=== PATIENT | female | born 1990 | race Native Hawaiian/Other Pacific Islander ===

== ENCOUNTER → 2022-05-23 09:46 | Outpatient (CLI) | payer OTHER, SELFPAY ==
[2022-05-23 12:28] LABS: HCG Quantitative /Beta subunit 74442 mIU/mL
== END ==
PROVIDERS: PCP Student in an Organized Health Care Education/Training Program; Referring Provider Obstetrics & Gynecology; Visit Provider Obstetrics & Gynecology
DX: Z34.81 Encounter for supervision of other normal pregnancy, first trimester (principal); N96 Recurrent pregnancy loss
CPT/HCPCS: 36415; 84702

== ENCOUNTER → 2022-05-25 09:10 | Outpatient (CLI) | payer OTHER, SELFPAY ==
[2022-05-25 11:14] LABS: HCG Quantitative /Beta subunit 84741 mIU/mL
== END ==
PROVIDERS: PCP Student in an Organized Health Care Education/Training Program; Referring Provider Obstetrics & Gynecology; Visit Provider Obstetrics & Gynecology
DX: Z34.81 Encounter for supervision of other normal pregnancy, first trimester (principal); N96 Recurrent pregnancy loss
CPT/HCPCS: 36415; 84702

== ENCOUNTER → 2022-06-30 14:03 | Outpatient (CLI) | payer OTHER, SELFPAY ==
[2022-06-30 22:01] LABS: Urine N gonorrhoeae NOT DETECTED
[2022-06-30 22:10] LABS: Urine Chlamydia NOT DETECTED
== END ==
PROVIDERS: PCP Student in an Organized Health Care Education/Training Program; Visit Provider Obstetrics & Gynecology
DX: Z34.81 Encounter for supervision of other normal pregnancy, first trimester (principal); Z3A.12 12 weeks gestation of pregnancy
CPT/HCPCS: 87491; 87591

== ENCOUNTER → 2022-06-30 14:36 | Outpatient (CLI) | payer OTHER, SELFPAY ==
[2022-06-30 15:02] LABS: Add Manual Diff / Slide Review NO; Basophils Absolute Auto 100 /uL (0-100); Basophils Percent Auto 0.8 % (0-2); Eosinophils Absolute Auto 200 /uL (0-450); Eosinophils Percent Auto 2.2 % (2-4); Hematocrit 40.3 % (36-46); Hemoglobin 13.8 g/dL (12.0-16.0); Lymphocytes Absolute Auto 1400 /uL (1100-4500); Mean Corpuscular HGB Conc 34.1 % (30-36); Mean Corpuscular Hemoglobin 29.3 PG (26-34); Monocytes Absolute Auto 500 /uL (0-900); Monocytes Percent Auto 5.8 % (3-14); Neutrophils Absolute Auto 7200 /uL (1500-7000); Neutrophils Percent Auto 76.2 % (50-75); Platelet Count 288 X10^3/uL (150-400); Red Blood Cell Count 4.69 X10^6/uL (4.0-5.2); Red Cell Distribution Width 13.5 % (11.6-14.8); White Blood Cell Count 9.5 X10^3/uL (4.5-11.0)
[2022-06-30 16:36] LABS: Hepatitis B Surface Antigen NEGATIVE s/c (NEGATIVE); Rubella Antibody IgG 25.8 IU/mL (>15)
[2022-06-30 16:57] LABS: HIV 1 & 2 Ab/Ag 4th Gen Combo NEGATIVE (NEGATIVE); Hep C Virus Ab w/Reflex Quant NEGATIVE s/c (NEGATIVE)
[2022-07-01 06:05] LABS: RPR Screen Non Reactive (Non Reactive)
[2022-07-01 09:16] LABS: Varicella IgG Antibody 611 index (Immune >165)
== END ==
PROVIDERS: PCP Student in an Organized Health Care Education/Training Program; Referring Provider Obstetrics & Gynecology; Visit Provider Obstetrics & Gynecology
DX: Z34.81 Encounter for supervision of other normal pregnancy, first trimester (principal); Z3A.12 12 weeks gestation of pregnancy
CPT/HCPCS: 36415; 80055; 86787; 86803; 86850; 86900; 86901; 87389; 87491; 87591

== ENCOUNTER → 2022-08-02 09:53 | Outpatient (CLI) | payer OTHER, SELFPAY ==
[2022-08-02 13:39] LABS: Appearance Urine UA CLEAR; Bilirubin Urine UA NEGATIVE (NEGATIVE); Color Urine UA YELLOW; Glucose Urine UA NEGATIVE (Negative); Ketones Urine UA NEGATIVE (NEGATIVE); Leukocyte Esterase Urine UA 1+ (NEGATIVE); Nitrite Urine UA NEGATIVE (Negative); Occult Blood Urine UA NEGATIVE (Negative); Protein Urine UA NEGATIVE (Negative); Specific Gravity Urine UA <=1.005 (1.000-1.035); Urobilinogen Urine UA 0.2 E.U./dL (0.2)
[2022-08-02 13:43] LABS: Bacteria Urine None Seen; RBC Urine None Seen (0-5/HPF); Squamous Epithelial Cell Urine 0-1 /HPF (0-5/HPF); WBC Urine 1-5/HPF (0-5/HPF)
== END ==
PROVIDERS: PCP Student in an Organized Health Care Education/Training Program; Visit Provider Obstetrics & Gynecology
DX: Z34.81 Encounter for supervision of other normal pregnancy, first trimester (principal)
CPT/HCPCS: 81003; 81015; 87086

== ENCOUNTER → 2022-08-09 15:11 | Outpatient (CLI) | payer OTHER, SELFPAY ==
--- NOTE | 2022-08-09 15:11 | DI.US.S_ITS ---
PROCEDURE: US OB >= 14 WEEKS FETUS INDICATIONS: ANATOMY OUTSIDE/PRIOR DATING DATA: Last menstrual period (LMP): 04/02/2022 LMP-based estimated date of delivery (RIGO): 01/07/2023. First dating scan (date and location): 06/02/2022. Estimated date of delivery (RIGO) from first dating scan: 01/08/2023. The calculations are made using the clinical RIGO of 01/07/2023. TECHNIQUE: Real-time scanning was performed of the fetus, with image documentation and biometric measurements. COMPARISON: [facility], , OB <= 14 WEEKS FETUS, 06/02/2022, 17:12. FINDINGS: General: A single living intrauterine gestation is present. Presentation: Variable. Placenta: Placental position is anterior , without previa. Amniotic fluid index: 15.7 cm, normal range is 5-24 cm. Single deepest vertical pocket is 5.5 cm. heart rate: 150 beats per minute. Maternal cervical canal: 4.4 cm long. Normal lower limit is 2.5 cm. biometrics: Biparietal diameter: 19 weeks Head circumference: 18 weeks 2 days Abdominal circumference: 18 weeks 5 days Femur length: 17 weeks 5 days Clinically estimated gestational age: 18 weeks 3 days Composite gestational age from present scan: 18 weeks 3 days Estimated weight and percentile: 233 g; 37th percentile Anatomic survey: Neuro: Ventricles are non-dilated at less than 10 mm. Cisterna magna is normal at 3-11 mm. Cerebellum is normal in size and morphology. Nuchal skin fold: Normal at less than 6 mm between 14-21 weeks gestational age. Face: Nose and lips, facial profile are normal. Spine: No evidence for spina bifida. Heart: 4-chambered heart is present, with normal ventricular outflow tracts. Solitary left ventricular intracardiac focus. Diaphragm: Diaphragm is intact. Stomach: Left-sided stomach is present. Kidneys: No hydronephrosis. Normal is less than 5 mm in 2nd trimester, less than 7 mm in 3rd trimester. Cord: 3-vessel cord has orthotopic insertion. Bladder: Normal in size. Extremities: All 4 extremities identified. IMPRESSION: 1. Single living IUP redemonstrated and interval growth is normal. 2. Echogenic intracardiac focus: 1.4-1.8 fold likelihood of Down syndrome. If isolated finding, consider aneuploidy screening with cell-free DNA. If aneuploidy screen is negative, no further evaluation needed. Anatomic survey otherwise normal. We strive to produce accurate, complete, and clear reports of imaging services. To assist us in improving patient care, this report was composed using standard report templates and voice recognition software. Therefore, it may contain abnormal punctuation, insertions and/or omissions. Occasional wrong-word or sound-alike substitutions may occur. Though we review the report and make efforts to correct it, we do recommend that the report be read carefully in proper context to recognize any text inaccuracies. Dictated by: Sampson OROZCO Interpreted: Mario Hernandez MD on 08/09/2022 at 16:43 Transcribed by: REESE on 08/11/2022 at 16:16 Approved by: Malinda Moyer M.D. on 08/11/2022 at 21:16
== END ==
PROVIDERS: PCP Student in an Organized Health Care Education/Training Program; Referring Provider Obstetrics & Gynecology; Visit Provider Obstetrics & Gynecology
DX: Z34.82 Encounter for supervision of other normal pregnancy, second trimester (principal); Z3A.18 18 weeks gestation of pregnancy
CPT/HCPCS: 76811

== ENCOUNTER → 2022-08-19 10:05 | Outpatient (CLI) | payer OTHER, SELFPAY | PROVIDERS: PCP Student in an Organized Health Care Education/Training Program; Referring Provider Obstetrics & Gynecology; Visit Provider Obstetrics & Gynecology | DX: Z34.82 Encounter for supervision of other normal pregnancy, second trimester (principal) | CPT/HCPCS: 36415 ==

== ENCOUNTER → 2022-10-04 09:37 | Outpatient (CLI) | payer OTHER, SELFPAY ==
[2022-10-04 11:40] LABS: Hematocrit 36.5 % (36-46); Hemoglobin 12.6 g/dL (12.0-16.0)
[2022-10-04 11:54] LABS: GTT (PREG) 1 Hour PP 50gm Dose 135 mg/dL (76-139)
== END ==
PROVIDERS: PCP Student in an Organized Health Care Education/Training Program; Referring Provider Obstetrics & Gynecology; Visit Provider Obstetrics & Gynecology
DX: Z34.82 Encounter for supervision of other normal pregnancy, second trimester (principal); Z3A.26 26 weeks gestation of pregnancy
CPT/HCPCS: 36415; 82950; 85014; 85018

== ENCOUNTER → 2022-12-13 15:31 | Outpatient (CLI) | payer OTHER, SELFPAY ==
[2022-12-14 17:19] LABS: Strep Grp B PCR NEG for Grp B Strep
== END ==
PROVIDERS: PCP Student in an Organized Health Care Education/Training Program; Visit Provider Obstetrics & Gynecology
DX: Z34.83 Encounter for supervision of other normal pregnancy, third trimester (principal); Z3A.36 36 weeks gestation of pregnancy
CPT/HCPCS: 87653

== ENCOUNTER 2022-12-17 02:54 | Observation (INO) | payer OTHER, SELFPAY ==
--- NOTE | 2022-12-17 12:51 | PM.OBTRLD ---
Visit Information Visit Information Date of evaluation: 12/17/22 On-call OB Provider: Tad Cool Reason for Evaluation: Yes rule out labor and Yes other Comments/Additional reasons for admission: Bleeding at 37 weeks' gestation [facility] Medical History (Updated 12/17/22 @ 12:57 by Tad Cool MD) Anxiety (~2006) Chicken pox (~1995) Depression (~2006) Foot pain (~2011) Heavy menstrual period (~11/2020) History of precipitous delivery Infertility (~11/2018) Irregular menstrual cycle (~2004) Migraines (~2004) Painful menstrual periods (~11/2020) Raynaud's disease Seasonal allergies Surgical History (Updated 06/07/22 @ 20:27 by Shilpa Tidwell) Anesthesia [place] teeth extracted (~12/2016) Family History (Updated 06/07/22 @ 20:31 by Shilpa Tidwell) Father Diabetes mellitus Hypertension Periodontal disease Hyperlipidemia Mother Hypertension Pre-diabetes Hyperlipidemia Grandmother Lung cancer Cancer Family/Other Colon cancer Family/Other Breast cancer Grandmother Myocardial infarction Hypertension Diabetes mellitus History of heart disease Family/Other Diabetes mellitus Hypertension Grandfather Colon cancer Hypertension Periodontal disease Social History marital status: number of children: 1 household members: spouse and children lives independently: Yes [facility] ([facility]) pets and animals: No education level: college (femi's degree) occupational status: unemployed current occupational exposures/hazards: No special georgi needs: No travel history: recent (domestic only) seatbelt use: always helmet use: Yes water heater temp set < 120 deg: Yes working smoke detector in home: Yes fire extinguisher in home: Yes carbon monox detector in home: Yes firearms in home: Yes do you feel safe at home: Yes Smoking Status: Former smoker (Quit age 25) Tobacco: How many years used: 7 (at worst 1.5 pack/day) second hand exposure: Yes (neighbors smoke heavily) alcohol intake: former (occasionally, not while ) substance use type: does not use during the past year weight has: remained stable well-balanced diet: daily or most days daily servings fruits/ve-4 caffeine: Yes (1 cup coffee/day, Aware of 200mg limit) Type(s) of exercise: walking, bicycling (stationary bike) and weight lifting frequency: daily Exam Const General: cooperative Orientation: oriented x3 HENMT Head: normal to inspection Other: When patient arrived, she had a pad with nickel size amount of old blood on her pad. She was having occasional contractions she was walked for an hour the contractions ceased she then had a larger area of blood on her pad approximately 4 cm x 1 cm. Pad was changed she was then observed for another 2 hours and there was no significant bleeding no bright red blood Evaluation Evaluation Baseline heart rate: 150 Variability: Average (6-10) monitor accelerations: Present Monitor Decelerations: Absent Comments: Cervical check was not done due to her bleeding and lack of contractions or any signs of labor Diagnosis, Plan/Disposition Final Diagnosis (1) False labor after 37 weeks of gestation without delivery: Status: Acute Plan/Disposition Plan: Patient being discharged and told to return when she has 10 contractions and a half an hour or signs of ruptured membranes, or bright red blood as opposed dark blood OB Disposition: home
== END 2022-12-17 07:25 | disposition home or self-care (01) ==
LOC: LABOR 02:57
PROVIDERS: Admitting Provider Obstetrics & Gynecology; PCP Student in an Organized Health Care Education/Training Program; Referring Provider Student in an Organized Health Care Education/Training Program; Visit Provider Obstetrics & Gynecology
DX: O47.1 False labor at or after 37 completed weeks of gestation (principal); O46.93 Antepartum hemorrhage, unspecified, third trimester; Z3A.37 37 weeks gestation of pregnancy
CPT/HCPCS: 59025; 59050; G0378; G0379

== ENCOUNTER 2022-12-20 19:12 | Inpatient (IN) | payer OTHER, SELFPAY ==
--- NOTE | 2022-12-20 20:03 | P.HPOB_ITS ---
OB HPI Date/Time Date of admission: 12/20/22 Date Patient Seen: 12/20/22 Time Patient Seen: 20:03 History of Present Condition Chief complaint: OB CHECK RIGO Calculator Estimated Delivery Date Method Current WG Current Estimate 01/07/23 LMP (Certain) 37w 3d Other Estimates 01/09/23 Ultrasound #1 37w 1d 01/08/23 Ultrasound #2 37w 2d : 4 Para: 1 Narrative: [id number] @ 37wks 5days by LMP concordant with early US, here for evaluation of labor. contractions started around 1pm and steadily increased in frequency and intensity. Now breathing through strong contractions every 2-3 minutes. No vaginal bleeding or leaking of fluid. Uncomplicated care with . Planning low intervention without epidural. Spouse, Ed, is present and supportive, care: good care, initiated at week # (8), number of visits (9) and pounds weight gain (21) Dating criteria OB: LMP confirmed by 1st trimester US Ultrasounds: normal mid trimester US (single cardiac EIF) Obstetrical complications: none Medical complications OB: none Preadmission Labs Last OB Lab Results: Blood Type O Positive 12/20/22 19:50 Antibody Screen Negative 12/20/22 19:50 Hematocrit 40.4 % (36-46) 12/20/22 19:50 Hemoglobin 13.9 g/dL (12.0-16.0) 12/20/22 19:50 Hepatitis B Surface Antigen Negative s/c (NEGATIVE) 06/30/22 14 :47 Hepatitis C Antibody Negative s/c (NEGATIVE) 06/30/22 14:47 Rubella Antibody 25.8 IU/mL (>15) 06/30/22 14:47 Varicella-Zoster IgG Antibody 611 index (Immune >165) 06/30/22 14:47 Glucose 1 Hour 135 mg/dL (76-139) 10/04/22 10:58 Group B Streptococcus (PCR) Neg for grp b strep 12/13/22 15:31 Prior (ies) Past Pregnancies Del. Date GA/Weeks Labor Lgth Wt Sex Route Outcome Anesthesia Place Delv Breastfeed Preg Comp Name 11/22/08 13 spontaneous 11/01/19 38 4 1.956 kg Female vaginal live - full term [facility]) 14 1/2 months other Amie 10/17/21 8 spontaneous Delivery Date: 11/22/08 Last Updated by: Diana Gomez RN Likely late missed AB Delivery Date: 11/01/19 Last Updated by: Diana Gomez RN Microsomia, inadequately treated GBS, ~5 days NICU stay Delivery Date: 10/17/21 Last Updated by: Diana Gomez RN late missed AB Evaluation Evaluation Baseline heart rate: 130 Variability: Moderate (11-25) monitor accelerations: Present Monitor Decelerations: Absent Contraction Frequency (minutes): 2 Uterine Contraction Intensity: Moderate Status: Category l Dilation (cm): 5 Effacement (%): 80 station: -1 Comments: SHAY, CE by ANCA [facility] Medical History Anxiety (~2006) Chicken pox (~1995) Depression (~2006) Foot pain (~2011) Heavy menstrual period (~11/2020) History of precipitous delivery Infertility (~11/2018) Irregular menstrual cycle (~2004) Migraines (~2004) Painful menstrual periods (~11/2020) Raynaud's disease Seasonal allergies Surgical History Anesthesia [place] teeth extracted (~12/2016) Family History Father Diabetes mellitus Hypertension Periodontal disease Hyperlipidemia Mother Hypertension Pre-diabetes Hyperlipidemia Grandmother Lung cancer Cancer Family/Other Colon cancer Family/Other Breast cancer Grandmother Myocardial infarction Hypertension Diabetes mellitus History of heart disease Family/Other Diabetes mellitus Hypertension Grandfather Colon cancer Hypertension Periodontal disease Social History marital status: number of children: 1 household members: spouse and children lives independently: Yes [facility]) pets and animals: No education level: college (femi's degree) occupational status: unemployed current occupational exposures/hazards: No special georgi needs: No travel history: recent (domestic only) seatbelt use: always helmet use: Yes water heater temp set < 120 deg: Yes working smoke detector in home: Yes fire extinguisher in home: Yes carbon monox detector in home: Yes firearms in home: Yes do you feel safe at home: Yes Smoking Status: Former smoker Tobacco: How many years used: 7 (at worst 1.5 pack/day) second hand exposure: Yes (neighbors smoke heavily) alcohol intake: former (occasionally, not while ) substance use type: does not use during the past year weight has: remained stable well-balanced diet: daily or most days daily servings fruits/ve-4 caffeine: Yes (1 cup coffee/day, Aware of 200mg limit) Type(s) of exercise: walking, bicycling (stationary bike) and weight lifting frequency: daily Meds Home Medications and Allergies Home Medications Medication Instructions Recorded Confirmed Type cetirizine 10 mg capsule (Zyrtec) 10 mg PO DAILY PRN Allergy Symptoms 05/12/22 12/20/22 History fluticasone propionate 50 1 spray intranasal DAILY 05/12/22 12/20/22 History mcg/actuation nasal spray,suspension (Flonase Allergy Relief) prenat.vits,isidro,kgw-jial-ukgve 1 tab PO DAILY 05/12/22 12/20/22 History cholecalciferol (vitamin D3) 50 50 mcg PO DAILY 05/19/22 12/20/22 History mcg (2,000 unit) capsule Allergies Allergy/AdvReac Type Severity Reaction Status Date / Time No Known Allergies Allergy Verified 12/13/22 15:14 Review of Systems Review of Systems ROS: Yes All systems reviewed with the patient and are negative except as otherwise documented OB Exam Vital signs Blood Pressure: 135/84 Pulse Rate: 75 Temperature: 97.3 F Resp Effort & Inspection: normal respiratory effort and able to speak in complete sentences Presentation: vertex Objective Labs 12/20/22 19:50 Assessment and Plan Assessment and Plan Assessment and Plan narrative: A: Term primipara Active labor No indication for GBS prophylaxis Rh POSITIVE Appropriate for CNM management Cat I FHR P: Admit, routine labor orders. Expectant management of labor. CNM to manage as OC OB. May switch to intermittent auscultation. Labor support PRN. Encourage movement. Reassess in 4 hours or sooner, PRN.
[2022-12-20 20:05] LABS: Add Manual Diff / Slide Review NO; Basophils Absolute Auto 100 /uL (0-100); Eosinophils Absolute Auto 100 /uL (0-450); Eosinophils Percent Auto 0.7 % (2-4); Hematocrit 40.4 % (36-46); Hemoglobin 13.9 g/dL (12.0-16.0); Lymphocytes Absolute Auto 1100 /uL (1100-4500); Lymphocytes Percent Auto 9.8 % (25-40); Mean Corpuscular HGB Conc 34.3 % (30-36); Mean Corpuscular Hemoglobin 29.7 PG (26-34); Mean Corpuscular Volume 86.6 fL (80-100); Monocytes Absolute Auto 600 /uL (0-900); Monocytes Percent Auto 5.6 % (3-14); Neutrophils Absolute Auto 9300 /uL (1500-7000); Neutrophils Percent Auto 82.9 % (50-75); Platelet Count 198 X10^3/uL (150-400); Red Blood Cell Count 4.67 X10^6/uL (4.0-5.2); Red Cell Distribution Width 14.8 % (11.6-14.8); White Blood Cell Count 11.2 X10^3/uL (4.5-11.0)
[2022-12-20 20:16] VITALS: BP 135/84; PULSE 75; TEMP 36.3
[2022-12-20] MEDS: OXYTOCIN PREMIX 30 UNIT/500 ML PLAST..BAG 250 UNIT IV (21:52)
--- NOTE | 2022-12-20 22:00 | PM.OBPRVD ---
Labor & Delivery Delivery date: 12/20/22 Intrapartal Events: None Cervical ripening method: none Induction method: none Delivery monitor: external FHT Route of delivery: Episiotomy description: None L&D Laceration Description: None Quantitative Blood Loss: 350 Anesthesia Type: None Narrative: Ray labored well without augmentation or labor analgesia. SROM for clear fluid was followed quickly by a spontaneous urge to push and patient was C/C/+1. Coaching, encouragement and strong maternal efforts led to a NSVB of a viable baby boy in KRISHAN position. A compound left hand was manually reduced and the shoulders delivered easily. was delivered through a single loose nuchal cord and placed on maternal abdomen for drying and stimulation and spontaneous cry was heard. 30 units of pitocin in 500mL LR was started at 250mL/hr for active management of the third stage. After cessation of pulsation, the cord was double clamped by CNM and cut by FOB. Cord blood sample was collected. Gentle cord traction and a single maternal push led to a spontaneous, Schultze delivery of an apparently intact placenta, membranes and 3VC. Fundus was immediately form and clots were massaged out until bleeding reduced to scant. Vagina and perinuem inspected and intact. QBL 350mL. both mother and baby stable and skin to skin as I left the room. Baby 1: gender: Male Presentation: vertex Position: Left Occiput Anterior Placenta delivery description: Spontaneous Cord Vessel Description: 3 Vessels, Nuchal Cord and Loose score (1 min): 7 score (5 min): 9 weight: 2.739 kg Plan for aftercare: Routine care
[2022-12-20] MEDS: KETOROLAC 30 MG/ML VIAL IV (23:54)
[2022-12-21] MEDS: IBUPROFEN 600 MG TABLET PO ×2 (05:55→12:21)
[2022-12-21 06:30] LABS: Add Manual Diff / Slide Review NO; Basophils Absolute Auto 100 /uL (0-100); Basophils Percent Auto 0.5 % (0-2); Eosinophils Absolute Auto 100 /uL (0-450); Eosinophils Percent Auto 0.5 % (2-4); Hemoglobin 11.5 g/dL (12.0-16.0); Lymphocytes Absolute Auto 1300 /uL (1100-4500); Lymphocytes Percent Auto 8.3 % (25-40); Mean Corpuscular HGB Conc 33.8 % (30-36); Mean Corpuscular Hemoglobin 29.6 PG (26-34); Mean Corpuscular Volume 87.7 fL (80-100); Monocytes Absolute Auto 1000 /uL (0-900); Monocytes Percent Auto 6.3 % (3-14); Neutrophils Absolute Auto 12900 /uL (1500-7000); Neutrophils Percent Auto 84.4 % (50-75); Platelet Count 180 X10^3/uL (150-400); Red Blood Cell Count 3.87 X10^6/uL (4.0-5.2); Red Cell Distribution Width 14.9 % (11.6-14.8); White Blood Cell Count 15.2 X10^3/uL (4.5-11.0)
--- NOTE | 2022-12-21 07:44 | PM.OBDS.1 ---
Discharge Providers Provider Date of admission: 12/20/22 19:12 Discharge Date: 12/21/22 Primary care physician: Karla Knapp MD Consults: 12/21/22 21:58 Consult to Airways Control Specialist Routine Comment: Discharge provider: Adelaide Dejesus CNM Summary Hospital Course Date Patient Seen: 12/21/22 Time Patient Seen: 07:45 Diagnoses: O80 Hospital Course: PPD1: Stable s/p NSVB. Had more initial bleeding, total QBL 600mL, that resolved with pitocin and fundal massage. Voiding, ambulating and independently. Tolerating a general diet. Pain is well controlled with PO medication. Peripartum Data Infant Delivery Method: Natural Vaginal Laceration Description: None Episiotomy description: None Procedures: O80 complications: none 1: Gender: Male Disposition of : home Discharge Diagnosis (1) Encounter for full-term uncomplicated delivery: Status: Acute Problem Details: Routine course Status at Discharge Cognitive/behavioral status at discharge: oriented and calm Functional status at discharge: independent ambulation Overall status at discharge: patient is back to baseline Time Spent with Patient Time attestation: Total time spent providing and/or coordinating discharge services: Objective Labs 12/21/22 06:03 Labs: Laboratory Results - last 24 hr 12/20/22 12/20/22 12/21/22 19:50 19:50 06:03 WBC 11.2 H 15.2 H RBC 4.67 3.87 L Hgb 13.9 11.5 L Hct 40.4 34.0 L MCV 86.6 87.7 MCH 29.7 29.6 MCHC 34.3 33.8 RDW 14.8 14.9 H Plt Count 198 180 Neut % (Auto) 82.9 H 84.4 H Lymph % (Auto) 9.8 L 8.3 L [place] % (Auto) 5.6 6.3 Eos % (Auto) 0.7 L 0.5 L Baso % (Auto) 1.0 0.5 Neut # (Auto) 9300 H 40284 H Lymph # (Auto) 1100 1300 [place] # (Auto) 600 1000 H Eos # (Auto) 100 100 Baso # (Auto) 100 100 Blood Type O Positive Antibody Screen Negative Exam Vital Signs (past 8 hours): BP 117/80, HR 64bpm, RR 16/min, T 98.7F Temporal Other: Fundus firm @ u-1, lochia scant, perineum intact. Discharge Plan Discharge Plan Patient Disposition: Home Discharge orders & Medications Prescriptions: New ibuprofen 600 mg Tablet 600 mg PO Q6HR PRN (Reason: Pain, Mild (1-3)) 14 Days Qty: 60 0RF Continued prenat.vits,isidro,fqz-rsag-cpbbj Tablet 1 tab PO DAILY Zyrtec 10 mg capsule 10 mg PO DAILY PRN (Reason: Allergy Symptoms) fluticasone propionate [Flonase Allergy Relief] 50 mcg/actuation spray,suspension 1 spray intranasal DAILY Rx Instructions: administer into each nostril cholecalciferol (vitamin D3) 50 mcg (2,000 unit) capsule 50 mcg PO DAILY Follow up/Referrals: Karla Knapp MD [Primary Care Provider] - Pura Neely MD [Physician] - Diet/Activity/Treatments Diet: Diet as Tolerated and Regular Activity: pelvic rest x 6 weeks Skin/Wound/Dressing Care Report to your healthcare provider any signs of infection, such as:: chills, fever, increased pain, unusual drainage and unusual redness Visit Report/Discharge Packet Instructions: DI for Depression Stand Alone Forms: Patient Portal/API, Stroke Signs & Symptoms Discharge Data Primary Care Provider: Karla Knapp
[2022-12-21 18:41] VITALS: BP 135/84; PULSE 75; TEMP 36.3
== END 2022-12-21 18:29 | disposition home or self-care (01) | DRG 807 ==
PROVIDERS: Nurse Practitioner Obstetrics & Gynecology; Admitting Provider Obstetrics & Gynecology; PCP Student in an Organized Health Care Education/Training Program; Referring Provider Obstetrics & Gynecology; Visit Provider Obstetrics & Gynecology
DX: O80 Encounter for full-term uncomplicated delivery (principal); Z37.0 Single live birth; Z3A.37 37 weeks gestation of pregnancy
CPT/HCPCS: 36415; 59050; 85025; 86850; 86900; 86901; G0379; J1885; J2590

== ENCOUNTER → 2022-12-26 11:39 | Outpatient (CLI) | payer OTHER, SELFPAY ==
[2022-12-26 12:45] LABS: Hematocrit 31.6 % (36-46); Hemoglobin 10.8 g/dL (12.0-16.0); Mean Corpuscular HGB Conc 34.1 % (30-36); Platelet Count 349 X10^3/uL (150-400); Red Blood Cell Count 3.59 X10^6/uL (4.0-5.2); Red Cell Distribution Width 14.9 % (11.6-14.8); White Blood Cell Count 10.2 X10^3/uL (4.5-11.0)
== END ==
PROVIDERS: PCP Student in an Organized Health Care Education/Training Program; Referring Provider Specialist; Visit Provider Specialist
DX: B99.9 Unspecified infectious disease (principal); R10.9 Unspecified abdominal pain
CPT/HCPCS: 36415; 85027

== ENCOUNTER → 2022-12-30 09:00 | Outpatient (CLI) | payer OTHER, SELFPAY ==
--- NOTE | 2022-12-30 09:01 | DI.US.S_ITS ---
PROCEDURE: US PELVIC COMPLETE INDICATIONS: RIGH LOWER QUADRANT PAIN S/P VAGINAL 12/20/2022 TECHNIQUE: Real-time scanning was performed of the pelvic organs, with image documentation. Endovaginal scanning could not be performed. COMPARISON: [facility], , US PELVIC COMPLETE, 05/27/2022, 15:28. FINDINGS: Uterus: 14.6 x 6.3 x 9.2 cm. Anteverted. Endometrium measures 5 mm. uterus. There is small amount of complex free fluid within the endometrium and cervix. Ovaries: Right ovary measures 6 cc. Left ovary measures 3 cc. Other: No pathologic free fluid. IMPRESSION: Transabdominal only pelvic ultrasound within normal limits for state. No acute abnormality identified. Small amount of complex fluid is seen within the endometrium and cervix. We strive to produce accurate, complete, and clear reports of imaging services. To assist us in improving patient care, this report was composed using standard report templates and voice recognition software. Therefore, it may contain abnormal punctuation, insertions and/or omissions. Occasional wrong-word or sound-alike substitutions may occur. Though we review the report and make efforts to correct it, we do recommend that the report be read carefully in proper context to recognize any text inaccuracies. Dictated by: Mario Hernandez M.D. on 12/30/2022 at 9:36 Approved by: Mario Hernandez M.D. on 12/30/2022 at 9:38
== END ==
PROVIDERS: PCP Student in an Organized Health Care Education/Training Program; Referring Provider Obstetrics & Gynecology; Visit Provider Obstetrics & Gynecology
DX: R10.31 Right lower quadrant pain (principal)
CPT/HCPCS: 76856; 93976

== ENCOUNTER → 2024-03-15 15:12 | Outpatient (CLI) | payer OTHER, SELFPAY ==
--- NOTE | 2024-03-15 | DI.US.S_ITS ---
PROCEDURE: US OB >= 14 WEEKS FETUS INDICATIONS: ANATOMY SCAN OUTSIDE/PRIOR DATING DATA: Last menstrual period (LMP): Unsure/10/28/23. LMP-based estimated date of delivery (RIGO): 07/18/24 First dating scan (date and location): Not available. Estimated date of delivery (RIGO) from first dating scan: Not available. The calculations are made using the clinical RIGO of 07/18/24. TECHNIQUE: Real-time scanning was performed of the fetus, with image documentation and biometric measurements. Endovaginal scanning: Not performed COMPARISON: [facility], , OB >= 14 WEEKS FETUS, 10/25/2022, 11:27. FINDINGS: General: A single living intrauterine gestation is present. Presentation: Transverse, head to maternal left. Placenta: Placental position is anterior , without previa. Amniotic fluid index: 13.1 cm, normal range is 5-24 cm. Single deepest vertical pocket is 4.3 cm. heart rate: 155 beats per minute. Maternal cervical canal: 5.0 cm long. Normal lower limit is 2.5 cm. biometrics: Biparietal diameter: 5.2 cm, 21 weeks six days Head circumference: 20.2 cm, 22 weeks two days Abdominal circumference: 18.1 cm, 23 weeks 0 days Femur length: 3.5 cm, 21 weeks one day Clinically estimated gestational age: 20 weeks five days Composite gestational age from present scan: 22 weeks one day Estimated weight and percentile: 481 g, 98th percentile Anatomic survey: Neuro: Ventricles are non-dilated at less than 10 mm. Cisterna magna is normal at 3-11 mm. Cerebellum is normal in size and morphology. Nuchal skin fold: Normal at less than 6 mm between 14-21 weeks gestational age. Face: Nose and lips, facial profile are normal. Spine: No evidence for spina bifida. Heart: Not well seen due to position. Diaphragm: Diaphragm is intact. Stomach: Left-sided stomach is present. Kidneys: No hydronephrosis. Normal is less than 5 mm in 2nd trimester, less than 7 mm in 3rd trimester. Cord: 3-vessel cord has orthotopic insertion. Bladder: Normal in size. Extremities: All 4 extremities identified. IMPRESSION: Single living intrauterine with a composite gestational age of 22 weeks one day, 10 days ahead of the clinically assigned gestational age. Estimated weight at the 98th percentile. Heart and cardiac outflow tracts are not well seen due to position. Short-term follow-up recommended. Otherwise normal anatomy. Closed cervix and normal amniotic fluid volume. Anterior placenta. We strive to produce accurate, complete, and clear reports of imaging services. To assist us in improving patient care, this report was composed using standard report templates and voice recognition software. Therefore, it may contain abnormal punctuation, insertions and/or omissions. Occasional wrong-word or sound-alike substitutions may occur. Though we review the report and make efforts to correct it, we do recommend that the report be read carefully in proper context to recognize any text inaccuracies. Dictated by: Claire Lee M.D. on 03/15/2024 at 17:08 Approved by: Claire Lee M.D. on 03/15/2024 at 17:17
== END ==
PROVIDERS: PCP Student in an Organized Health Care Education/Training Program; Referring Provider Nurse Practitioner Obstetrics & Gynecology; Visit Provider Nurse Practitioner Obstetrics & Gynecology
DX: Z34.92 Encounter for supervision of normal pregnancy, unspecified, second trimester (principal); Z3A.22 22 weeks gestation of pregnancy
CPT/HCPCS: 76811

== ENCOUNTER → 2024-03-26 13:16 | Outpatient (CLI) | payer OTHER, SELFPAY ==
--- NOTE | 2024-03-26 13:18 | DI.US.S_ITS ---
PROCEDURE: US OB FOLLOW UP INDICATIONS: Follow up to anatomy scan OUTSIDE/PRIOR DATING DATA: Last menstrual period (LMP): Unknown. LMP-based estimated date of delivery (RIGO): Unknown. First dating scan (date and location): Un known Estimated date of delivery (RIGO) from first dating scan: Not available. The calculations are made using the clinical RIGO of 07/18/2024. TECHNIQUE: Real-time scanning was performed of the fetus, with image documentation. COMPARISON: [facility], , OB >= 14 WEEKS FETUS, 03/15/2024, 15:30. FINDINGS: A single living intrauterine gestation is present. Presentation: Transverse. Placenta: Placental position is anterior, without previa. Amniotic fluid index: 16.3 cm, normal range is 5-24 cm. Single deepest vertical pocket is 5.2 cm. heart rate: 165 beats per minute. Maternal cervical canal: 4.5 cm long. Normal lower limit is 2.5 cm. Clinically estimated gestational age: 23 weeks 5 days 4 chambered heart and outflow tracts are within normal limits. IMPRESSION: Single live intrauterine with gestational age today of 23 weeks 5 days. 4 chambered heart and outflow tracts are within normal limits. Dictated by: Malinda Moyer M.D. on 03/26/2024 at 17:03 Approved by: Malinda Moyer M.D. on 03/26/2024 at 17:04
== END ==
PROVIDERS: PCP Student in an Organized Health Care Education/Training Program; Referring Provider Advanced Practice Midwife; Visit Provider Advanced Practice Midwife
DX: Z34.92 Encounter for supervision of normal pregnancy, unspecified, second trimester (principal); Z3A.23 23 weeks gestation of pregnancy
CPT/HCPCS: 76816

== ENCOUNTER 2024-06-03 12:47 | Outpatient (CLI) | payer OTHER, SELFPAY ==
[2024-06-03 13:11] LABS: Add Manual Diff / Slide Review NO; Basophils Absolute Auto 0 /uL (0-100); Basophils Percent Auto 0.5 % (0-2); Eosinophils Absolute Auto 0 /uL (0-450); Eosinophils Percent Auto 0.7 % (2-4); Hematocrit 38.1 % (36-46); Hemoglobin 13.3 g/dL (12.0-16.0); Lymphocytes Absolute Auto 1000 /uL (1100-4500); Lymphocytes Percent Auto 13.2 % (25-40); Mean Corpuscular Hemoglobin 30.4 PG (26-34); Mean Corpuscular Volume 86.9 fL (80-100); Monocytes Absolute Auto 500 /uL (0-900); Monocytes Percent Auto 6.3 % (3-14); Neutrophils Absolute Auto 6000 /uL (1500-7000); Neutrophils Percent Auto 79.3 % (50-75); Platelet Count 234 X10^3/uL (150-400); Red Blood Cell Count 4.38 X10^6/uL (4.0-5.2); White Blood Cell Count 7.6 X10^3/uL (4.5-11.0)
[2024-06-03 13:25] LABS: Alanine Aminotransferase 16 IU/L (<35); Albumin 4.1 g/dL (3.5-5.0); Albumin Globulin Ratio 1.2 (1.0-2.8); Alkaline Phosphatase 100 U/L (38-126); Aspartate Aminotransferase 20 IU/L (14-36); BUN Creatinine Ratio 11.4 (6-22); Bilirubin Total 0.5 mg/dL (0.2-1.3); Blood Urea Nitrogen 8 mg/dL (7-17); Carbon Dioxide 19 mmol/L (22-32); Chloride 106 mmol/L (98-107); Estimated Glomerular Filt Rate > 60 mL/min (>60); Globulin 3.3 g/dL (1.7-4.1); Glucose 89 mg/dL (70-100); HEMOLYSIS < 15 (0-50); Potassium 3.8 mmol/L (3.4-5.1); Sodium 135 mmol/L (137-145); Total Protein 7.4 g/dL (6.3-8.2); Uric Acid 6.2 mg/dL (2.5-6.2)
[2024-06-03] MEDS: ONDANSETRON 4 MG ODT SL (14:13)
--- NOTE | 2024-06-03 14:20 | PM.OBTRLD ---
Visit Information Visit Information Date of evaluation: 06/03/24 Primary OB Provider: Agnes Luna On-call OB Provider: Agnes Luna Reason for Evaluation: Yes other Comments/Additional reasons for admission: Ray is here today with concerns for elevated blood pressure in her third trimester. She is a 34 year old at 32w4d by 7 week ultrasound. Went to a support group today with the [employer]; reported these symptoms to ANCA Sweet, who took her blood pressures manually. Both were elevated - the first was 160/100 and the second was 140/90. Micki and Kalpeshamanda both called this CNM to report these concerns. Ray has had her care with CNMs complicated by anxiety and AMA. She has a history of 2 NSVBs and 2 SABs. Her first was complicated by an FGR baby so with these risk factors, she has been on LDASA this . She denies headache, visual changes, epigastric pain. She has not been feeling well - lots of nausea and vomiting for the last week. Has not ever taken any anti-nausea medications in her pregnancies. Denies other sick people in the house. Vital Signs Vital Signs: BPs: 118/80, 123/84, 137/84 SpO2: 100% HR: 81 bpm Temp: 35.8 PFSH Medical History (Updated 06/03/24 @ 19:22 by Agnes Luna CNM, CANDLE WRAPPING MACHINE OPERATOR) Encounter for supervision of other normal , first trimester Migraines (~2004) Foot pain (~2011) Chicken pox (~1995) Painful menstrual periods (~11/2020) Irregular menstrual cycle (~2004) Heavy menstrual period (~11/2020) Anxiety (~2006) Depression (~2006) History of precipitous delivery Seasonal allergies Raynaud's disease Infertility (~11/2018) Surgical History Anesthesia [place] teeth extracted (~12/2016) Family History Father Diabetes mellitus Hypertension Periodontal disease Hyperlipidemia Mother Hypertension Pre-diabetes Hyperlipidemia Grandmother Lung cancer Cancer Family/Other Colon cancer Family/Other Breast cancer Grandmother Myocardial infarction Hypertension Diabetes mellitus History of heart disease Family/Other Diabetes mellitus Hypertension Grandfather Colon cancer Hypertension Periodontal disease Social History marital status: number of children: 1 household members: spouse and children lives independently: Yes housing: [facility] ([facility]) pets and animals: No education level: college (femi's degree) occupational status: unemployed current occupational exposures/hazards: No special georgi needs: No travel history: recent (domestic only) seatbelt use: always helmet use: Yes water heater temp set < 120 deg: Yes working smoke detector in home: Yes fire extinguisher in home: Yes carbon monox detector in home: Yes firearms in home: Yes do you feel safe at home: Yes Smoking Status: Former smoker Tobacco: How many years used: 7 (at worst 1.5 pack/day) second hand exposure: Yes (neighbors smoke heavily) alcohol intake: former (occasionally, not while ) substance use type: does not use during the past year weight has: remained stable well-balanced diet: daily or most days daily servings fruits/ve-4 caffeine: Yes (1 cup coffee/day, Aware of 200mg limit) Type(s) of exercise: walking, bicycling (stationary bike) and weight lifting frequency: daily Review of Systems Review of Systems Narrative: All negative except as mentioned in HPI Objective Labs 06/03/24 13:05 06/03/24 13:05 Labs: Laboratory Results - last 24 hr 06/03/24 13:05 WBC 7.6 RBC 4.38 Hgb 13.3 Hct 38.1 MCV 86.9 MCH 30.4 MCHC 35.0 RDW 14.0 Plt Count 234 Neut % (Auto) 79.3 H Lymph % (Auto) 13.2 L Campbell % (Auto) 6.3 Eos % (Auto) 0.7 L Baso % (Auto) 0.5 Neut # (Auto) 6000 Lymph # (Auto) 1000 L Campbell # (Auto) 500 Eos # (Auto) 0 Baso # (Auto) 0 Sodium 135 L Potassium 3.8 Chloride 106 Carbon Dioxide 19 L BUN 8 Creatinine 0.70 Estimated GFR > 60 BUN/Creatinine Ratio 11.4 Glucose 89 Uric Acid 6.2 Calcium 9.0 Total Bilirubin 0.5 AST 20 ALT 16 Alkaline Phosphatase 100 Total Protein 7.4 Albumin 4.1 Globulin 3.3 Albumin/Globulin Ratio 1.2 Evaluation Evaluation Baseline heart rate: 145 Variability: Average (6-10) monitor accelerations: Present Monitor Decelerations: Absent Contraction Frequency (minutes): 20 (irregular, painless) Uterine Contraction Intensity: Mild Category of Tracing: Reactive Diagnosis, Plan/Disposition Final Diagnosis (1) Supervision of normal in third trimester: Status: Acute (2) Advanced maternal age (AMA) in : Status: Acute (3) Vomiting or nausea of : Status: Acute Plan/Disposition Plan: at 34w2d Nausea and vomiting of Normotensive Proteinuria Reactive NST PET panel wtih urine PCR Non stress test Rx Ondansetron 4 mg ODT, sent to pharmacy and one given prior to discharge Discharge home with precautions Follow up with CNM in 1 week as previously scheduled, or sooner PRN.
[2024-06-03 15:00] LABS: Creatinine Urine Random 16.28 mg/dL; Protein (Total) Urine Random 15 mg/dL (0-12); Protein Creatinine Ratio Urine 0.92 GRAM/24H
== END 2024-06-03 14:29 | disposition home or self-care (01) ==
LOC: LABOR 13:57 → OB 06-05 09:42
PROVIDERS: PCP Student in an Organized Health Care Education/Training Program; Referring Provider Advanced Practice Midwife; Visit Provider Advanced Practice Midwife
DX: O26.893 Other specified pregnancy related conditions, third trimester (principal); O09.523 Supervision of elderly multigravida, third trimester; R03.0 Elevated blood-pressure reading, without diagnosis of hypertension; R11.2 Nausea with vomiting, unspecified; Z3A.34 34 weeks gestation of pregnancy
CPT/HCPCS: 36415; 59025; 80053; 82570; 84156; 84550; 85025; G0378; G0379

== ENCOUNTER 2024-07-05 19:40 | Inpatient (IN) | payer OTHER, SELFPAY ==
--- NOTE | 2024-07-05 19:55 | PM.OBHP.1 ---
OB HPI Date/Time Date of admission: 07/05/24 Date Patient Seen: 07/05/24 Time Patient Seen: 19:55 History of Present Condition Chief complaint: labor : 5 Para: 2 Estimated Gestational Age (weeks): 37w 1d Narrative: Ray Zarco is a 34yo who presents today at 37w 1d confirmed by 8wk ultrasound concordant with LMP for evaluation of labor. The contractions started at 5pm, now every 5-6 mins, lasting about 1 min, moderate intensity. Upon arrival she says that her contractions started to feel stronger. She has not had a leak or gush of water, good movement. Uncomplicated care with CNMs. Desires low-intervention, unmedicated . Partner supportive at bedside. History of Present care: good care Dating criteria: LMP confirmed by 1st trimester US (concordant with LMP) Ultrasounds: normal 1st trimester US and normal mid trimester US Obstetrical complications: none Medical complications: none Preadmission Labs Blood type: O (+) positive -: Antibody screen: negative, GBS status: positive, HBsAG: negative, HIV: negative and RPR/VDLR: negative -: Chlamydia screen: not detected and Gonorrhea screen: not detected -: Rubella: immune and Varicella: immune HCT: 40.7 HCAB: negative 1 hr GTT: 119 Narrative: Prior (ies) History: See above Evaluation Evaluation Baseline heart rate: 150 Variability: Minimal (3-5) monitor accelerations: Present Monitor Decelerations: Late Contraction Frequency (minutes): 2 Status: Category ll Dilation (cm): 4 Effacement (%): 90 Dilation: 3-4 cm Effacement: >/=80% station: -1 Position of cervix: posterior Consistency: soft Santos score: 9 Comments: Moderate vaginal bleeding noted [facility] Medical History (Updated 06/03/24 @ 19:22 by Agnes Luna, YOBANY, 3D DESIGNER) Encounter for supervision of other normal , first trimester Migraines (~2004) Foot pain (~2011) Chicken pox (~1995) Painful menstrual periods (~11/2020) Irregular menstrual cycle (~2004) Heavy menstrual period (~11/2020) Anxiety (~2006) Depression (~2006) History of precipitous delivery Seasonal allergies Raynaud's disease Infertility (~11/2018) Surgical History Anesthesia [place] teeth extracted (~12/2016) Family History Father Diabetes mellitus Hypertension Periodontal disease Hyperlipidemia Mother Hypertension Pre-diabetes Hyperlipidemia Grandmother Lung cancer Cancer Family/Other Colon cancer Family/Other Breast cancer Grandmother Myocardial infarction Hypertension Diabetes mellitus History of heart disease Family/Other Diabetes mellitus Hypertension Grandfather Colon cancer Hypertension Periodontal disease Social History marital status: number of children: 1 household members: spouse and children lives independently: Yes housing: [facility] ([facility]) pets and animals: No education level: college (femi's degree) occupational status: unemployed current occupational exposures/hazards: No special georgi needs: No travel history: recent (domestic only) seatbelt use: always helmet use: Yes water heater temp set < 120 deg: Yes working smoke detector in home: Yes fire extinguisher in home: Yes carbon monox detector in home: Yes firearms in home: Yes do you feel safe at home: Yes Smoking Status: Former smoker Tobacco: How many years used: 7 (at worst 1.5 pack/day) second hand exposure: Yes (neighbors smoke heavily) alcohol intake: former (occasionally, not while ) substance use type: does not use during the past year weight has: remained stable well-balanced diet: daily or most days daily servings fruits/ve-4 caffeine: Yes (1 cup coffee/day, Aware of 200mg limit) Type(s) of exercise: walking, bicycling (stationary bike) and weight lifting frequency: daily Meds Home Medications and Allergies Home Medications Medication Instructions Recorded Confirmed Type cetirizine 10 mg capsule (Zyrtec) 10 mg PO DAILY PRN Allergy Symptoms 05/12/22 01/30/23 History fluticasone propionate 50 1 spray intranasal DAILY 05/12/22 01/30/23 History mcg/actuation nasal spray,suspension (Flonase Allergy Relief) prenat.vits,isidro,[id number] 1 tab PO DAILY 05/12/22 01/30/23 History cholecalciferol (vitamin D3) 50 50 mcg PO DAILY 05/19/22 01/30/23 History mcg (2,000 unit) capsule hydroxyzine HCl 25 mg tablet See Rx Instructions PO BID PRN 01/30/23 01/30/23 Rx anxiety #30 tabs Allergies Allergy/AdvReac Type Severity Reaction Status Date / Time No Known Allergies Allergy Verified 01/30/23 14:21 Review of Systems Review of Systems ROS: Yes All systems reviewed with the patient and are negative except as otherwise documented OB Exam Vital signs Blood Pressure: 132/90 Pulse Rate: 68 Respiratory Rate: 20 Temperature: 96.4 F Resp Effort & Inspection: normal respiratory effort Auscultation: clear to auscultation bilaterally Cardio Rate: regular rate Rhythm: regular rhythm Heart Sounds: S1 normal and S2 normal Presentation: vertex Objective Labs 07/05/24 18:26 07/05/24 18:26 Assessment and Plan Assessment and Plan Assessment and Plan narrative: A: Early term Multipara Active Labor Initial elevated blood pressure Antibiotics indicated Cat 2 tracing, overall reassuring P: Admit, routine orders with antibiotics for GBS prophylaxis and preeclampsia panel. Expectant management of labor with continuous EFM. Will consider weighting pads if vaginal bleeding persists. Encouragement and hands on support for comfort. Reassess in 4 hours or sooner, PRN. Time-Based Coding :: [TOTAL MINUTES] spent with patient and on the chart (including review of chart, obtaining history, exam, reviewing outside data, placing orders, documenting exam and treatment plan, and counseling patient) on [DATE].
[2024-07-05] MEDS: LACTATED RINGERS 1,000 ML 100 ML IV (20:34)
[2024-07-05] MEDS: AMPICILLIN 2,000 MG in SODIUM CHLORIDE 0.9% 100 ML 200 MG IV (20:34)
[2024-07-05 20:39] LABS: Add Manual Diff / Slide Review NO; Basophils Absolute Auto 100 /uL (0-100); Basophils Percent Auto 0.9 % (0-2); Eosinophils Absolute Auto 0 /uL (0-450); Eosinophils Percent Auto 0.3 % (2-4); Hemoglobin 14.3 g/dL (12.0-16.0); Lymphocytes Absolute Auto 1700 /uL (1100-4500); Lymphocytes Percent Auto 14.1 % (25-40); Mean Corpuscular HGB Conc 34.2 % (30-36); Mean Corpuscular Hemoglobin 29.9 PG (26-34); Mean Corpuscular Volume 87.6 fL (80-100); Monocytes Absolute Auto 600 /uL (0-900); Monocytes Percent Auto 5.2 % (3-14); Neutrophils Absolute Auto 9800 /uL (1500-7000); Neutrophils Percent Auto 79.5 % (50-75); Platelet Count 176 X10^3/uL (150-400); Red Cell Distribution Width 13.9 % (11.6-14.8); White Blood Cell Count 12.4 X10^3/uL (4.5-11.0)
[2024-07-05 20:47] VITALS: BP 132/90; PULSE 68; RESP 20; TEMP 35.8
[2024-07-05 20:51] LABS: Alanine Aminotransferase 13 IU/L (<35); Albumin 3.7 g/dL (3.5-5.0); Alkaline Phosphatase 134 U/L (38-126); Aspartate Aminotransferase 21 IU/L (14-36); Bilirubin Total 0.5 mg/dL (0.2-1.3); Blood Urea Nitrogen 8 mg/dL (7-17); Calcium 8.9 mg/dL (8.4-10.2); Carbon Dioxide 17 mmol/L (22-32); Chloride 106 mmol/L (98-107); Estimated Glomerular Filt Rate > 60 mL/min (>60); Globulin 3.6 g/dL (1.7-4.1); Glucose 80 mg/dL (70-100); HEMOLYSIS < 15 (0-50); Potassium 3.6 mmol/L (3.4-5.1); Sodium 130 mmol/L (137-145); Total Protein 7.3 g/dL (6.3-8.2)
--- NOTE | 2024-07-05 23:40 | PM.OBPRVD ---
Labor & Delivery Delivery date: 07/05/24 Intrapartal Events: None Cervical ripening method: none Induction method: none Delivery monitor: external FHT and external uterine Route of delivery: Episiotomy description: None L&D Laceration Description: None Quantitative Blood Loss: 200 Anesthesia Type: None Narrative: Labor progressed well without augmentation or anesthesia. Antibiotics initiated for greater than 2.5 hours when Ray started to feel increased rectal pressure. Cervix was checked and was found to be complete, complete. Ray waited for spontaneous urge to push with a 45 min second stage. Bag of sawyer spontaneously ruptured with maternal push and was clear. NSVB of viable baby boy in KRISHAN position with no nuchal cord and easy delivery of the shoulders. Baby was placed immediately on maternal abdomen and pitocin started for active management of the 3rd stage. Apgars 8/9. Cord was double clamped by SNM and cut by FOB after cord was found to no longer be pulsing. Cord blood collected and sent to the lab. Sorto delivery of an apparently intact placenta, membranes and 3 vessel cord. QBL 200mL. Mother and baby skin to skin and stable when I left the room. Heavy bleeding and moderate clots massaged out with next fundal check. Fundus firm, TXA ordered. Baby 1: gender: Male Presentation: vertex Position: Left Occiput Anterior Placenta delivery description: Spontaneous Cord Vessel Description: 3 Vessels score (1 min): 8 score (5 min): 9 weight: 3.062 kg Plan for aftercare: Routine care
[2024-07-05] MEDS: TRANEXAMIC ACID 1,000 MG in SODIUM CHLORIDE 0.9% 100 ML 600 MG IV (23:54)
[2024-07-06] MEDS: KETOROLAC 30 MG/ML VIAL IV (00:18)
[2024-07-06] MEDS: WITCH HAZEL/GLYCERIN PADS 1 EACH TOP (00:44)
[2024-07-06] MEDS: DERMOPLAST SPRAY 20% 60 ML 1 SPRAY TOP (00:45)
[2024-07-06] MEDS: OXYTOCIN PREMIX 30 UNIT/500 ML PLAST..BAG 200 UNIT IV (00:52)
[2024-07-06 03:29] VITALS: BP 131/77
[2024-07-06] MEDS: ACETAMINOPHEN 325 MG TABLET 650 MG PO (03:37)
[2024-07-06] MEDS: IBUPROFEN 600 MG TABLET PO (06:26)
--- NOTE | 2024-07-06 17:31 | PM.OBPN.1 ---
Subjective - OB Subjective Interval history: 18 hours s/p NSVB: Voiding, ambulating and independently, though her son is very sleepy and not wanting to latch. Vaginal bleeding is so much better than with her last 2 babies, minimal with no clots. Tolerating a general diet. Declining pain medication. Wants to stay the night for care and support. Exam Vital Signs (past 8 hours): BP 121/77, HR 64bpm, RR 16, T 98.0 F, SpO2 99% on RA Const General: healthy appearing Resp Effort & Inspection: normal respiratory effort and able to speak in complete sentences Cardio Rate: regular rate Other: Fundus firm @ U-1, lochia small rubra Extrem General: normal to inspection and no pedal edema Psych Appearance: grossly normal and well kempt Mental Status: mental status grossly normal Objective Labs 07/05/24 18:26 07/05/24 18:26 Labs: Laboratory Results - last 24 hr 07/05/24 07/05/24 18:26 20:05 WBC 12.4 H RBC 4.80 Hgb 14.3 Hct 42.0 MCV 87.6 MCH 29.9 MCHC 34.2 RDW 13.9 Plt Count 176 Neut % (Auto) 79.5 H Lymph % (Auto) 14.1 L [place] % (Auto) 5.2 Eos % (Auto) 0.3 L Baso % (Auto) 0.9 Neut # (Auto) 9800 H Lymph # (Auto) 1700 [place] # (Auto) 600 Eos # (Auto) 0 Baso # (Auto) 100 Sodium 130 L Potassium 3.6 Chloride 106 Carbon Dioxide 17 L BUN 8 Creatinine 0.73 Estimated GFR > 60 BUN/Creatinine Ratio 11.0 Glucose 80 Uric Acid 7.0 H Calcium 8.9 Total Bilirubin 0.5 AST 21 ALT 13 Alkaline Phosphatase 134 H Total Protein 7.3 Albumin 3.7 Globulin 3.6 Albumin/Globulin Ratio 1.0 Blood Type O Positive Antibody Screen Negative Assessment & Plan Assessment and Plan (1) Encounter for full-term uncomplicated delivery: Problem details: Routine course Status: Acute Plan day: 1 plan OB: routine care Comments: Anticipate d/c to home in am. Time-Based Coding :: [TOTAL MINUTES] spent with patient and on the chart (including review of chart, obtaining history, exam, reviewing outside data, placing orders, documenting exam and treatment plan, and counseling patient) on [DATE].
--- NOTE | 2024-07-07 11:26 | P.DS_ITS ---
Discharge Providers Provider Date of admission: 07/05/24 19:40 Discharge Date: 07/07/24 Primary care physician: Karla Knapp MD Consults: 07/06/24 23:35 Consult to Protective Signal Repairer Helper Routine Comment: Discharge provider: Agnes Luna CNM, ARNP Summary Hospital Course Date Patient Seen: 07/07/24 Time Patient Seen: 11:27 Diagnoses: O80 Hospital Course: Spontaneous NSVB, normal QBL, normal course, . Peripartum Data Delivery Method: Natural Vaginal Discharge Diagnosis (1) Encounter for full-term uncomplicated delivery: Status: Acute Problem Details: Routine course Status at Discharge Cognitive/behavioral status at discharge: oriented and calm Functional status at discharge: independent ambulation Overall status at discharge: patient is progressing back to baseline Time Spent with Patient Time attestation: Total time spent providing and/or coordinating discharge services: Time spent: Less than 30 minutes Specific discharge activities: discharge teaching Objective Labs 07/05/24 18:26 07/05/24 18:26 Exam Vital Signs (past 8 hours): BP 115/78 HR: 83 bpm RR 14/min Temp: 98.6 F Temporal Other: Fundus firm at U, midline. Lochia scant Perineum intact with minimal edema Discharge Plan Discharge Plan Patient Disposition: Home Discharge orders & Medications Prescriptions: Continued prenat.vits,isidro,[id number] Tablet 1 tab PO DAILY Zyrtec 10 mg capsule 10 mg PO DAILY PRN (Reason: Allergy Symptoms) fluticasone propionate [Flonase Allergy Relief] 50 mcg/actuation spray,suspension 1 spray intranasal DAILY Rx Instructions: administer into each nostril cholecalciferol (vitamin D3) 50 mcg (2,000 unit) capsule 50 mcg PO DAILY Discontinued aspirin [Adult Aspirin] 81 mg Tablet,Chewable 1 tab PO DAILY Follow up/Referrals: Agnes Luna CNM, ARNP [Advanced Oyster Shucker] - 2 Weeks (2 and 6 week follow ups scheduled; see e-mail for details. 2 week on 07/19 at 11:45 in person.) Diet/Activity/Treatments Diet: Diet as Tolerated and Regular Diet comment: Increase fiber and fluid to support stool and healing Activity: Low perea x 2 weeks Cold/Heat Therapy: as needed Visit Report/Discharge Packet Stand Alone Forms: Patient Portal/API, Stroke Signs & Symptoms Discharge Data Primary Care Provider: Karla Knapp Attending Provider: Adelaide Dejesus Admit Date/Time: 07/05/24 19:40
[2024-07-07 12:45] VITALS: BP 131/77; PULSE 68; RESP 20; TEMP 35.8
== END 2024-07-07 12:30 | disposition home or self-care (01) | DRG 807 ==
PROVIDERS: Admitting Provider Nurse Practitioner Obstetrics & Gynecology; PCP Student in an Organized Health Care Education/Training Program; Referring Provider Nurse Practitioner Obstetrics & Gynecology; Visit Provider Nurse Practitioner Obstetrics & Gynecology
DX: O99.824 Streptococcus B carrier state complicating childbirth (principal); Z37.0 Single live birth; Z3A.37 37 weeks gestation of pregnancy
CPT/HCPCS: 36415; 59050; 80053; 84550; 85025; 86850; 86900; 86901; G0378; G0379; J0290; J1885; J2590